=== PATIENT | female | born 1970 | race Caucasian/White ===

== ENCOUNTER 2020-02-17 13:09 | Emergency (ER) | payer BC ==
--- NOTE | 2020-02-17 13:45 | ER Document Report ---
ED Medical Screen (RME) - General Stated Complaint: CHEST PAIN Time Seen by Provider: 02/17/20 13:33 - HPI Notes: Patient is 49 y/o female with no medical history who presents with chest pain that began 9 days ago and worsened two days ago. She describes the pain as dull and achy to her left chest. She states the pain comes on randomly and at times while she is resting. She denies palpitations, shortness of breath, fever, nausea, vomiting, and abdominal pain. She took 81mg ASA earlier this morning with some relief. Her father has a hx of heart disease. - Related Data Allergies/Adverse Reactions: latex Allergy (Verified 02/17/20 13:40) prochlorperazine [From Compazine] Allergy (Verified 02/17/20 13:40) Past Medical History - Social History Chew tobacco use (# tins/day): No Frequency of alcohol use: Rare Drug Abuse: None Physical Exam - Vital signs Vitals: Temp Pulse Resp BP Pulse Ox 98.1 F 70 16 134/83 H 100 02/17/20 13:21 02/17/20 13:21 02/17/20 13:21 02/17/20 13:21 02/17/20 13:21 - Respiratory Respiratory status: No respiratory distress Breath sounds: Normal Chest palpation: Normal - Cardiovascular Rhythm: Regular Heart sounds: Normal auscultation Murmur: No Course - Re-evaluation Re-evalutation: I have greeted and performed a rapid initial assessment of this patient. A comprehensive ED assessment and evaluation of the patient, analysis of test results and completion of medical decision making process will be conducted by an additional ED providers. - Vital Signs Vital signs: Temp Pulse Resp BP Pulse Ox 98.1 F 70 16 134/83 H 100 02/17/20 13:21 02/17/20 13:21 02/17/20 13:21 02/17/20 13:21 02/17/20 13:21
[2020-02-17 14:18] LABS: ABSOLUTE LYMPHOCYTES (AUTO) 1.7 10^3/uL (0.5-4.7); ABSOLUTE MONOCYTES (AUTO) 0.4 10^3/uL (0.1-1.4); ABSOLUTE NEUT (AUTO) 3.3 10^3/uL (1.7-8.2); BASOPHILS % (AUTO) 0.6 % (0-2); EOSINOPHILS % (AUTO) 0.9 % (0-6); HEMATOCRIT 35.9 % (36.0-47.0); HEMOGLOBIN 12.7 g/dL (12.0-15.5); LYMPHOCYTES % (AUTO) 31.6 % (13-45); MEAN CORPUSCULAR HEMOGLOBIN 31.2 pg (27.0-33.4); MEAN CORPUSCULAR HGB CONC 35.2 g/dL (32.0-36.0); MEAN CORPUSCULAR VOLUME 89 fl (80-97); MONOCYTES % (AUTO) 6.9 % (3-13); PLATELET COUNT 230 10^3/uL (150-450); RED BLOOD COUNT 4.06 10^6/uL (3.72-5.28); RED CELL DISTRIBUTION WIDTH 14.1 % (11.5-14.0); TOTAL CELLS COUNTED % (AUTO) 100 %; WHITE BLOOD COUNT 5.4 10^3/uL (4.0-10.5)
[2020-02-17 14:33] LABS: ALBUMIN 3.9 g/dL (3.5-5.0); ALKALINE PHOSPHATASE 56 U/L (38-126); ANION GAP 8 (5-19); ASPARTATE AMINO TRANSFERASE 17 U/L (14-36); BILIRUBIN,DIRECT 0.1 mg/dL (0.0-0.4); BILIRUBIN,TOTAL 0.5 mg/dL (0.2-1.3); BLOOD UREA NITROGEN 19 mg/dL (7-20); CALCIUM 8.9 mg/dL (8.4-10.2); CARBON DIOXIDE 28 mmol/L (22-30); CHLORIDE 103 mmol/L (98-107); GLUCOSE 91 mg/dL (75-110); POTASSIUM 4.2 mmol/L (3.6-5.0); TOTAL PROTEIN 6.6 g/dL (6.3-8.2)
--- NOTE | 2020-02-17 15:12 | RADIOLOGY REPORT (SQ) ---
EXAM DESCRIPTION: CHEST SINGLE VIEW IMAGES COMPLETED DATE/TIME: 02/17/2020 2:48 pm REASON FOR STUDY: chest pain COMPARISON: None. EXAM PARAMETERS: NUMBER OF VIEWS: One view. TECHNIQUE: Single frontal radiographic view of the chest acquired. RADIATION DOSE: NA LIMITATIONS: None. FINDINGS: LUNGS AND PLEURA: No consolidation, pneumothorax or pleural effusion. MEDIASTINUM AND HILAR STRUCTURES: No masses. Contour normal. HEART AND VASCULAR STRUCTURES: Heart normal in size. Normal vasculature. BONES: No acute findings. HARDWARE: None in the chest. IMPRESSION: NO ACUTE RADIOGRAPHIC FINDING IN THE CHEST. TECHNICAL DOCUMENTATION: JOB ID: [id number]- All Rights Reserved Reading location - IP/workstation name: [email or web address]
--- NOTE | 2020-02-17 16:32 | ER Document Report ---
Entered by SANIA YORK SCRIBE 02/17/20 1515 Acting as scribe for:LEONEL FLOR MD ED General - General Chief Complaint: Chest Pain Stated Complaint: CHEST PAIN Time Seen by Provider: 02/17/20 13:33 Information source: Patient Notes: This 49 year old female patient presents to the emergency department today with complaints of chest pain for the past week. Patient states her chest pain comes and goes, with a random episode yesterday, and states the pain was a continuous dull ache. Denies history of PR, HTN, HLD, or DM. Patient reports history of sleep apnea and a gastric sleeve (Apr 2019), denies any complications. Patient reports slight dizziness with her chest pain. Denies any nausea, sweating, palpitations, shortness of breath, or urinary symptoms. - Related Data Allergies/Adverse Reactions: latex Allergy (Verified 02/17/20 13:40) prochlorperazine [From Compazine] Allergy (Verified 02/17/20 13:40) Past Medical History - General Information source: Patient - Social History Smoking Status: Never Smoker Cigarette use (# per day): No Chew tobacco use (# tins/day): No Frequency of alcohol use: Rare Drug Abuse: None Lives with: Family Family History: Reviewed & Not Pertinent - Past Medical History Cardiac Medical History: Denies: Hx Heart Attack, Hx Hypercholesterolemia, Hx Hypertension Pulmonary Medical History: Reports: Hx Sleep Apnea Endocrine Medical History: Denies: Hx Diabetes Mellitus Type 1, Hx Diabetes Mellitus Type 2 Past Surgical History: Reports: Hx Abdominal Surgery - gastric sleeve (Apr 2019), Hx Tonsillectomy Review of Systems - Review of Systems Constitutional: See HPI EENT: No symptoms reported Cardiovascular: See HPI, Chest pain, Dizziness. denies: Palpitations Respiratory: See HPI. denies: Short of breath Gastrointestinal: See HPI. denies: Nausea Genitourinary: See HPI Female Genitourinary: No symptoms reported Musculoskeletal: No symptoms reported Skin: No symptoms reported Hematologic/Lymphatic: No symptoms reported Neurological/Psychological: No symptoms reported -: Yes All other systems reviewed and negative Physical Exam - Vital signs Vitals: Temp Pulse Resp BP Pulse Ox 98.1 F 70 16 134/83 H 100 02/17/20 13:21 02/17/20 13:21 02/17/20 13:21 02/17/20 13:21 02/17/20 13:21 - General General appearance: Appears well, Alert - HEENT Head: Normocephalic, Atraumatic Eyes: Normal Pupils: PERRL - Respiratory Respiratory status: No respiratory distress Chest status: Nontender Breath sounds: Normal Chest palpation: Normal - Cardiovascular Rhythm: Regular Heart sounds: Normal auscultation Murmur: No - Abdominal Inspection: Normal Distension: No distension Bowel sounds: Normal Tenderness: Nontender - Extremities General upper extremity: Normal inspection, Normal ROM General lower extremity: Normal inspection, Normal ROM. No: Edema - Neurological Neuro grossly intact: Yes Cognition: Normal Orientation: AAOx4 [place] Coma Scale Eye Opening: Spontaneous Antonio Coma Scale Verbal: Oriented Antonio Coma Scale Motor: Obeys Commands [place] Coma Scale Total: 15 Speech: Normal Motor strength normal: LUE, RUE, LLE, RLE Sensory: Normal - Psychological Associated symptoms: Normal affect, Normal mood - Skin Skin Temperature: Warm Skin Moisture: Dry Skin Color: Normal Course - Re-evaluation Re-evalutation: 02/17/20 15:40 Patient resting comfortably not showing any signs of distress chest pain-free. - Vital Signs Vital signs: Temp Pulse Resp BP Pulse Ox 98.1 F 70 16 134/83 H 100 02/17/20 13:21 02/17/20 13:21 02/17/20 13:21 02/17/20 13:21 02/17/20 15:00 02/17/20 15:40 Vital signs stable - Laboratory Result Diagrams: 02/17/20 13:45 02/17/20 13:45 Laboratory results interpreted by me: 02/17/20 13:45 Hct 35.9 L RDW 14.1 H 02/17/20 15:41 Laboratory results essentially unremarkable. Troponin 0 0.012. Second troponin pending at this time. Patient will be discharged if there is any elevation in troponin. 02/17/20 16:30 Repeat troponin still in the low level of 0.012 . Patient states she still has some residual left-sided chest pain at this mild pressure. Discussed with patient that she should take an aspirin on a daily basis 81 mg follow-up with her primary and to request for cardiology consult so that she can have a stress test and cardiac work-up. - Diagnostic Test Radiology reviewed: Image reviewed, Reports reviewed Radiology results interpreted by me: 02/17/20 15:42 Chest X-Ray 02/17/20 13:37 IMPRESSION: NO ACUTE RADIOGRAPHIC FINDING IN THE CHEST. Chest x-ray shows a normal chest no acute process. - EKG Interpretation by Me Additional EKG results interpreted by me: 02/17/20 15:42 Twelve-lead EKG today at 1314 shows a normal sinus rhythm rate of 63 [place] QRS and QT intervals within normal range no acute ST elevation or depression. Normal axis no evidence for STEMI. Of note low voltage noted in the frontal leads. Discharge - Discharge Clinical Impression: Chest pain, atypical Condition: Stable Disposition: HOME, SELF-CARE Instructions: Chest Pain of Unclear Cause ([facility]) Additional Instructions: Recommend 81 mg aspirin once a day. Please follow-up with your primary care provider and discuss cardiac work-up with [facility]. Return to the emergency department if there is any worsening chest pain. I personally performed the services described in the documentation, reviewed and edited the documentation which was dictated to the scribe in my presence, and it accurately records my words and actions.
[2020-02-17 16:41] VITALS: BP 102/75
== END 2020-02-17 16:41 | disposition home or self-care (01) ==
LOC: ER 13:09
DX: R07.89 Other chest pain (principal); Z88.8 Allergy status to other drugs, medicaments and biological substances
CPT/HCPCS: 36415; 71045; 80053; 84484; 85025; 99284